=== PATIENT | female | born 1985 | race Two or more races ===

== ENCOUNTER 2021-07-25 15:39 | Emergency (ER) | payer MEDICAID, OTHER ==
[~2021-07-25] VITALS: Ht 147.3 cm; Wt 54.4 kg
[2021-07-25] MEDS ORDERED: LORazepam 2MG/ML-1ML VIAL IV ONE (16:00)
[2021-07-25] MEDS ORDERED: SODIUM CHLORIDE 0.9% 3,000 ML IV ONE (16:00)
[2021-07-25 16:20] VITALS: BP 148/70
[2021-07-25 16:43] LABS: Basophils # (auto) 0.1 10 ^3/uL (0-0.2); Basophils % (auto) 1.9 % (0.0-2.0); Eosinophils # (auto) 0 10 ^3/uL (0-0.8); Eosinophils % (auto) 0.6 % (0.0-7.0); Hematocrit 34.9 % (36.0-46.0); Hemoglobin 12.3 g/dL (12.2-16.2); Lymphocytes # (auto) 1.2 10 ^3/uL (0.4-5.4); Mean Corpuscular Hemoglobin 32.4 pg (28.0-32.0); Mean Corpuscular Hgb Conc. 35.2 g/dL (32.0-36.0); Mean Corpuscular Volume 92.1 fL (80.0-100.0); Monocytes # (auto) 0.6 10 ^3/uL (0-1.3); Monocytes % (auto) 15.7 % (0.0-12.0); Neutrophils % (auto) 50.8 % (37.0-80.0); Nucleated Red Blood Cells % 0.3 %; Red Cell Distribution Width 14.5 % (11.8-14.3)
[2021-07-25 16:56] LABS: INR 1.01 (0.9-1.15); Partial Thromboplastin Time 28.5 sec (23.6-33.0)
[2021-07-25 17:03] LABS: Alanine Aminotransferase 164 U/L (13-56); Albumin 3.9 g/dL (3.4-5.0); Anion Gap 15 (5-15); Aspartate Aminotransferase 193 U/L (15-37); BUN/Creatinine Ratio 5.6; Blood Alcohol < 3.0 mg/dL (0-5); Blood Urea Nitrogen 4 mg/dL (7-18); Calcium 8.3 mg/dL (8.5-10.1); Carbon Dioxide 24 mmol/L (21-32); Chloride 97 mmol/L (98-107); GFR African American 117 mL/min; GFR Non-African American 97 mL/min; Glucose 87 mg/dL (74-106); Lipase 286 U/L (73-393); Magnesium 2.1 mg/dL (1.6-2.6); Potassium 3.1 mmol/L (3.5-5.1); Sodium 136 mmol/L (136-145)
[2021-07-25 17:05] LABS: Alkaline Phosphatase 174 U/L (45-117); Bilirubin, Total 0.8 mg/dL (0.2-1.0); Total Protein 8.3 g/dL (6.4-8.2)
[2021-07-25] MEDS ORDERED: IOHEXOL 300 MG/ML 100ML BOTTLE IJ ONE (17:43)
== END 2021-07-25 18:29 | disposition left against medical advice (07) ==
LOC: EDBD 15:39 → ER 15:39
DX: F10.129 Alcohol abuse with intoxication, unspecified (principal); R94.5 Abnormal results of liver function studies; Z88.0 Allergy status to penicillin; Y90.0 Blood alcohol level of less than 20 mg/100 ml
CPT/HCPCS: 36415; 80053; 80320; 83690; 83735; 83880; 84484; 84702; 85025; 85610; 85730; 93005; 96361; 96374; 99284; J2060; J7030; Q9967

== ENCOUNTER 2022-06-21 19:32 | Emergency (ER) | payer MEDICAID ==
[~2022-06-21] VITALS: Ht 152.4 cm; Wt 60.0 kg
[2022-06-21 20:27] LABS: Hematocrit 42.3 % (36.0-46.0); Mean Corpuscular Hemoglobin 30.6 pg (28.0-32.0); Mean Corpuscular Hgb Conc. 33.1 g/dL (32.0-36.0); Mean Corpuscular Volume 92.4 fL (80.0-100.0); Red Blood Cells 4.58 10^6/uL (4.0-5.20); Red Cell Distribution Width 15.2 % (11.8-14.3); White Blood Cell 5.1 10^3/uL (4.4-10.8)
[2022-06-21 20:30] LABS: Basophils % (manual) 0 (0.0-2.0); Blast Cells 0; Metamyelocytes % 0; Myelocytes % 0; Promyelocytes % 0; Reactive Lymphocytes 0
[2022-06-21 20:40] LABS: Albumin 4.4 g/dL (3.4-5.0); Calcium 9.2 mg/dL (8.5-10.1)
[2022-06-21 20:43] LABS: Bilirubin, Total 0.2 mg/dL (0.2-1.0); Total Protein 8.2 g/dL (6.4-8.2)
[2022-06-21 20:50] LABS: Band Neutrophils % (manual) 1; Eosinophils % (manual) 3 (0-7); Lymphocytes % (manual) 44 (10.0-50.0); Monocytes % (manual) 17 (0-12)
[2022-06-21 21:11] VITALS: BP 128/92
[2022-06-21] MEDS ORDERED: LORazepam 2MG/ML-1ML VIAL IM ONE (21:15)
== END 2022-06-21 23:04 | disposition home or self-care (01) ==
LOC: ER 19:32 → EDBD 19:32 → ER 23:03
DX: R07.89 Other chest pain (principal); Z88.0 Allergy status to penicillin
CPT/HCPCS: 36415; 71046; 80053; 84443; 84484; 85007; 85027; 93005; 96372; 99285; J2060

== ENCOUNTER 2024-06-22 16:01 | Emergency (ER) | payer MEDICAID ==
[~2024-06-22] VITALS: Ht 147.3 cm; Wt 54.0 kg
[2024-06-22] MEDS: HYDROcodone-ACET 10/325MG TAB PO ONE (16:22)
[2024-06-22] MEDS: ONDANSETRON ODT 4 MG TAB PO ONE (16:23)
--- NOTE | 2024-06-22 16:32 | ED.PDOC ---
History of Present Illness HPI Comments 38F BIBA w/ prior MHx of Anxiety and the c/c of pelvic pain. EMS report on the pt having N/ and vaginal/umbilical area pain for the past 2 days. Pt states on being on her menstruation cycle currently and being "very heavy". EMS note the pt being G2 and a pain type of an 8/10. Denies chills, fever, /V/D, SOB, CP. No other associated symptoms, modifiers, recent injuries or sick contacts present at this time. Patient has a history of anxiety. Patient was tachycardic and tachypneic at arrival. Patient was mildly histrionic at time of evaluation. 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 Family History Family History: Reviewed,noncontributory to illness, Unknown Social History Smoker: Non-Smoker Alcohol: Unknown Drugs: Denies Drug Use Lives In: Home Constitutional: denies: chills, diaphoresis, fatigue, fever, malaise, sweats, weakness, others EENTM: denies: blurred vision, double vision, ear bleeding, ear discharge, ear drainage, ear pain, ear ringing, eye pain, eye redness, hearing loss, mouth pain, mouth swelling, nasal discharge, nose bleeding, nose congestion, nose pain, photophobia, tearing, throat pain, throat swelling, voice changes, others Respiratory: denies: cough, hemoptysis, orthopnea, SOB at rest, shortness of breath, SOB with excertion, stridor, wheezing, others Cardiovascular: denies: chest pain, dizzy spells, diaphoresis, Dyspnea on exertion, edema, irregular heart beat, left arm pain, lightheadedness, palpitations, PND, syncope, others Gastrointestinal: reports: abdominal pain, nausea; denies: abdomen distended, blood streaked bowels, constipated, diarrhea, dysphagia, difficulty swallowing, hematemesis, melena, poor appetite, poor fluid intake, rectal bleeding, rectal pain, vomiting, others Genitourinary: denies: abnormal vagina bleeding, burning, dyspareunia, dysuria, flank pain, frequency, hematuria, incontinence, pain, , vagina discharge, urgency, others Neurological: denies: dizziness, fainting, headache, left sided numbness, left sided weakness, numbness, paresthesia, pre-existing deficit, right sided numbness, right sided weakness, seizure, speech problems, tingling, tremors, weakness, others Musculoskeletal: denies: back pain, gout, joint pain, joint swelling, muscle pain, muscle stiffness, neck pain, others Integumetry: denies: bruises, change in color, change in hair/nails, dryness, laceration, lesions, lumps, rash, wounds, others Allergic/Immunocompromised: denies: Difficulty Healing, Frequent Infections, Hives, Itching, others Hematologic/Lymphatic: denies: anemia, blood clots, easy bleeding, easy bruising, swollen glands, others Endocrine: denies: excessive hunger, excessive sweating, excessive thirst, excessive urination, flushing, intolerance to cold, intolerance to heat, unexplained weight gain, unexplained weight loss, others Psychiatric: reports: anxiety; denies: bipolar disorder, depression, hopeless, panic disorder, schizophrenia, sleepless, suicidal, others All Other Systems: Reviewed and Negative Physical Exam General Appearance: Moderate Distress (Moderate distress due to abdominal pain concerns.), Normal HEENT: Normal ENT Inspection, Pharynx Normal, TMs Normal Neck: Full Range of Motion, Non-Tender, Normal, Normal Inspection Respiratory: Chest Non-Tender, Lungs Clear, No Accessory Muscle Use, No Respiratory Distress, Normal Breath Sounds Cardiovascular: No Edema, No JVD, No Murmur, No Gallop, Normal Peripheral Pulses, Regular Rate/Rhythm Breast Exam: Deferred Gastrointestinal: No Pulsatile Mass, Normal Bowel Sounds, Other (Diffuse bilateral lower abdominal tenderness to palpation. No pulsatile masses. No signs of trauma.) Genitalia: Deferred Pelvic: Deferred Rectal: Deferred Extremities: No calf tenderness, Normal capillary refill, Normal inspection, Normal range of motion, Non-tender, No pedal edema Musculoskeletal : Apperance: Normal Neurologic: Alert, No Motor Deficits, Normal Affect, Normal Mood, No Sensory Deficits Cerebellar Function: Normal Reflexes: Normal Skin: Dry, Normal Color, Warm Lymphatic: No Adenopathy Was a procedure done? Was a procedure done?: No Differential Dx Considerations may include: Sepsis, electrolyte abnormality, UTI, menses pain, cramps, ovarian cyst, uterine fibroids, anxiety X-Ray, Labs, Meds, VS Vital Signs Date Time Temp Pulse Resp B/P (MAP) Pulse Ox O2 Delivery O2 Flow Rate FiO2 06/22/24 18:37 84 17 96 Room Air* 0 21 06/22/24 17:59 73 06/22/24 17:57 98.8 87 20 143/82 (102) 98 98.8 06/22/24 16:33 100 20 96 Room Air 06/22/24 16:33 98.5 100 20 112/72 (85) 96 98.5 06/22/24 16:07 98.0 108 24 109/73 (85) 98 98.0 Lab Test 06/22/24 16:30 06/22/24 16:25 Range/Units White Blood Count 3.9 L 4.4-10.8 10^3/uL Red Blood Count 4.21 4.0-5.20 10^6/uL Hemoglobin 13.0 12.2-16.2 g/dL Hematocrit 38.6 36.0-46.0 % Mean Corpuscular Volume 91.7 80.0-100.0 fL Mean Corpuscular Hemoglobin 31.0 28.0-32.0 pg Mean Corpuscular Hemoglobin Concent 33.8 32.0-36.0 g/dL Red Cell Distribution Width 13.8 11.8-14.3 % Platelet Count 159 140-450 10^3/uL Mean Platelet Volume 7.6 6.9-10.8 fL Neutrophils (%) (Auto) 40.2 37.0-80.0 % Lymphocytes (%) (Auto) 48.3 10.0-50.0 % Monocytes (%) (Auto) 7.1 0.0-12.0 % Eosinophils (%) (Auto) 4.1 0.0-7.0 % Basophils (%) (Auto) 0.3 0.0-2.0 % Neutrophils # (Auto) 1.6 1.6-8.6 10 ^3/uL Lymphocytes # (Auto) 1.9 0.4-5.4 10 ^3/uL Monocytes # (Auto) 0.3 0-1.3 10 ^3/uL Eosinophils # (Auto) 0.2 0-0.8 10 ^3/uL Basophils # (Auto) 0 0-0.2 10 ^3/uL Nucleated Red Blood Cells 0.1 % Sodium Level 145 136-145 mmol/L Potassium Level 3.9 3.5-5.1 mmol/L Chloride Level 112 H 98-107 mmol/L Carbon Dioxide Level 19 L 20-31 mmol/L Anion Gap 14 5-15 Blood Urea Nitrogen 6 L 9-23 mg/dL Creatinine 0.73 0.550-1.02 mg/dL Glomerular Filtration Rate Calc 107 >90 mL/min BUN/Creatinine Ratio 8.2 L 10.0-20.0 Serum Glucose 83 74-106 mg/dL Calcium Level 9.1 8.7-10.4 mg/dL Total Bilirubin 0.4 0.2-1.0 mg/dL Aspartate Amino Transferase (AST) 29 13-40 U/L Alanine Aminotransferase (ALT) 23 7-40 U/L Alkaline Phosphatase 66 46-116 U/L Total Protein 7.5 5.7-8.2 g/dL Albumin 4.5 3.2-4.8 g/dL Urine Color Yellow Yellow Urine Clarity Clear Clear Urine pH 6.0 5.0-9.0 Urine Specific [place] 1.039 H 1.001-1.035 Urine Protein Trace H Negative Urine Ketones Trace Negative Urine Blood Negative Negative /uL Urine Nitrite Negative Negative Urine Bilirubin Negative Negative Urine Urobilinogen Normal Negative mg/dL Urine Leukocyte Esterase Negative Negative /uL Urine RBC 2 0 - 4 /hpf Urine Microscopic WBC 1 0-5 /HPF Urine Squamous Epithelial Cells Few <5 /hpf Urine Bacteria None seen None Seen /hpf Urine Mucus Few None Seen Urine Glucose Normal Normal mg/dL Urine Test Negative Negative Urine Opiates Screen Neg NEGATIVE Urine Fentanyl Screen Neg NEGATIVE Urine Barbiturates Screen Neg NEGATIVE Urine Phencyclidine Screen Neg NEGATIVE Urine Amphetamines Screen Neg NEGATIVE Urine Benzodiazepines Screen Neg NEGATIVE Urine Cocaine Screen Neg NEGATIVE Urine Cannabinoids Screen Neg NEGATIVE Current Medications Medications (Trade) Dose Ordered Sig/Fernando Route Start Time Stop Time Status Last Admin Acetaminophen/ Hydrocodone Bitart ([place] 10/325MG Tab) 1 tab ONCE ONCE PO 06/22/24 16:15 06/22/24 16:16 DC 06/22/24 16:22 Ondansetron HCl (Zofran Po) 4 mg ONCE ONCE PO 06/22/24 16:15 06/22/24 16:16 DC 06/22/24 16:23 Lorazepam (Ativan Inj) 1 mg ONCE ONCE IM 06/22/24 18:00 06/22/24 18:01 DC 06/22/24 18:40 X-Ray, Labs, Meds, VS Comment All studies performed the ED were evaluated by me personally. While patient was waiting for initial pain medication, patient started to complain of chest pain concerns. Patient was provided with the Ativan and EKG revealed a sinus rhythm with a rate of 73. ND interval of 127 and QT interval 414. Patient may have a right bundle-branch block. Serum laboratories were unremarkable for any systemic concerns. Urinalysis is unremarkable for any urinary tract issues. Ultrasound of the pelvis was unremarkable for any uterine fibroids or ovarian cyst. Patient appears to be having cramping pains and anxiety through patient responded well to Ativan and pain medication. Advised patient utilize pain medication as needed and follow up with touch up painter hand for discussions related to worsening cramps during menses. Time of 1ST Reevaluation: 19:05 Reevaluation 1ST: Improved Consultation: PCP, corrections cadet Patient Education/Counseling: Diagnosis, Treatment, Prognosis Family Education/Counseling: Diagnosis, Treatment, No Family Present Departure 1 Departure Time of Disposition: 19:06 Impression: Primary Impression: Menses painful Additional Impression: Anxiety Disposition: HOME / SELF CARE / HOMELESS Condition: Stable Additional Instructions: Advised patient utilize pain medication as needed for symptomatic relief. Patient should follow up with her touch up painter hand for discussions related to worsening menses pain concerns. e-Prescriptions Ondansetron Odt 4MG Tab (ZOFRAN PO) 4 Mg Tb 4 MG PO Q6HP PRN, #10 TAB ODT TAB-DISSOLVE IN MOUTH, THEN SWALLOW Prov: MARIELENA PFEIFFER PAC 06/22/24 Acetaminophen (Acetaminophen) 500 Mg Tab 500 MG PO Q4HP PRN, #30 TAB Prov: MARIELENA PFEIFFER PAC 06/22/24 Ibuprofen Micronized (Ibuprofen) 800 Mg Tab 800 MG PO Q8HP PRN, #20 TAB Prov: MARIELENA PFEIFFER PAC 06/22/24 Discharged With: Self, Friend Critical Care Note Critical Care Time?: No Stability Stability form required: No Heart Score Heart Score: Heart Score Response (Comments) Value History Slightly Suspicious 0 EKG Repolarization Disturb 1 Age <45 0 Risk Factors No known risk factors 0 Troponin Normal limit 0 Total 1 I personally scribed for MARIELENA PFEIFFER PAC ([email or web address]) on 06/22/24 at 16:32. Electronically submitted by Gaurang Ritchie ([email or web address]). MARIELENA PFEIFFER PAC June 22, 2024 16:32
[2024-06-22 16:41] LABS: Basophils # (auto) 0 10 ^3/uL (0-0.2); Basophils % (auto) 0.3 % (0.0-2.0); Eosinophils # (auto) 0.2 10 ^3/uL (0-0.8); Eosinophils % (auto) 4.1 % (0.0-7.0); Hematocrit 38.6 % (36.0-46.0); Lymphocytes # (auto) 1.9 10 ^3/uL (0.4-5.4); Lymphocytes % (auto) 48.3 % (10.0-50.0); Mean Corpuscular Hgb Conc. 33.8 g/dL (32.0-36.0); Mean Corpuscular Volume 91.7 fL (80.0-100.0); Monocytes # (auto) 0.3 10 ^3/uL (0-1.3); Monocytes % (auto) 7.1 % (0.0-12.0); Neutrophils # (auto) 1.6 10 ^3/uL (1.6-8.6); Neutrophils % (auto) 40.2 % (37.0-80.0); Nucleated Red Blood Cells % 0.1 %; Platelet Count (auto) 159 10^3/uL (140-450); Red Blood Cells 4.21 10^6/uL (4.0-5.20); Red Cell Distribution Width 13.8 % (11.8-14.3); White Blood Cell 3.9 10^3/uL (4.4-10.8)
[2024-06-22 16:55] LABS: Alanine Aminotransferase 23 U/L (7-40); Albumin 4.5 g/dL (3.2-4.8); Alkaline Phosphatase 66 U/L (46-116); Anion Gap 14 (5-15); Aspartate Aminotransferase 29 U/L (13-40); BUN/Creatinine Ratio 8.2 (10.0-20.0); Bilirubin, Total 0.4 mg/dL (0.2-1.0); Glucose 83 mg/dL (74-106); Potassium 3.9 mmol/L (3.5-5.1); Sodium 145 mmol/L (136-145); Total Protein 7.5 g/dL (5.7-8.2)
[2024-06-22 17:00] LABS: Blood Urea Nitrogen 6 mg/dL (9-23); Carbon Dioxide 19 mmol/L (20-31); Chloride 112 mmol/L (98-107)
[2024-06-22 17:01] LABS: Calcium 9.1 mg/dL (8.7-10.4)
[2024-06-22 17:56] LABS: Urine Bacteria None Seen /hpf (None Seen)
--- NOTE | 2024-06-22 18:00 | ECG ---
[facility] Test Date: 2024-06-22 Test Time: 17:59:24 Pat Name: LESIA GRANADOS Department: ER Room: Gender: F Car Sander: SWATI : 1985 Requested By: MARIELENA PFEIFFER Order Number: [id number] Reading MD: Viktor Crowell Measurements Intervals [place] Rate: 73 P: 60 MI: 127 QRS: 7 QRSD: 123 T: 41 QT: 414 QTc: 457 Interpretive Statements Sinus rhythm IVCD, consider atypical RBBB Electronically Signed On 06-26-2024 12:39:52 PDT by Viktor Crowell Please click the below link to view image of tracing.
[2024-06-22 18:14] LABS: Urine Blood Negative /uL (Negative); Urine Clarity Clear (Clear); Urine Color Yellow (Yellow); Urine Mucus FEW (None Seen); Urine Protein, UAD TRACE (Negative); Urine Specific Gravity 1.039 (1.001-1.035); Urine Squamous Epithelial Cell FEW /hpf (<5); Urine Urobilinogen Normal (Negative); Urine WBC 1 /HPF (0-5)
[2024-06-22 18:21] LABS: Opiate Scree,Urine Neg (NEGATIVE)
[2024-06-22 18:34] LABS: Amphetamine Screen, Urine Neg (NEGATIVE); Barbiturate Scree,Urine Neg (NEGATIVE); Benzodiazephine Screen, Urine Neg (NEGATIVE); Phencyclidine Screen, Urine Neg (NEGATIVE)
[2024-06-22 18:35] LABS: Cannabinoid Screen, Urine Neg (NEGATIVE); Cocaine Screen, Urine Neg (NEGATIVE)
[2024-06-22 18:37] VITALS: PULSE 84; RESP 17; O2SAT 96
[2024-06-22] MEDS: LORazepam 2MG/ML-1ML VIAL IM ONE (18:40)
--- NOTE | 2024-06-22 18:51 | DVH ---
EXAM: US PELVIC CLINICAL HISTORY: Diffuse bilateral pelvic pain TECHNIQUE: Transabdominal ultrasound of the pelvis with color Doppler flow as clinically indicated. COMPARISON: None Findings: Same-day quantitative beta-hCG is not available. Uterus measures 6.1 x 3.4 x 5.1 cm in size with relatively homogeneous echotexture and normal contour s. Endometrial thickness measures 0.3 cm with smooth contour. Cervix appears grossly unremarkable. Right ovary measures 2.8 x 1.8 x 2.5 cm. Left ovary measures 2.1 x 1.1 x 1.8 cm. Normal ovarian colo r Doppler flow to the bilateral ovaries. No free fluid in the cul-de-sac. Impression: 1. Uterus grossly unremarkable with endometrial thickness of 0.3 cm. 2. Bilateral ovaries within normal limits with normal color flow.
[2024-06-22] MEDS ORDERED: ZOFR4T PO (19:07)
[2024-06-22] MEDS ORDERED: IBUP-1455 PO (19:07)
[2024-06-22] MEDS ORDERED: ACET500T58 PO (19:07)
[2024-06-22 19:25] VITALS: BP 113/84; PULSE 83; RESP 14; TEMP 99; O2SAT 98
== END 2024-06-22 19:26 | disposition home or self-care (01) ==
LOC: EDBD 16:01 → ER 16:01
DX: N94.6 Dysmenorrhea, unspecified (principal); F41.9 Anxiety disorder, unspecified; Z88.0 Allergy status to penicillin
CPT/HCPCS: 36415; 76856; 80053; 80307; 81001; 81025; 85025; 93005; 96372; 99285; J2060; Q0162

== ENCOUNTER 2024-12-06 00:16 | Inpatient (IN) | payer MEDICAID ==
[~2024-12-06] VITALS: Ht 152.4 cm; Wt 60.3 kg
[~2024-12-06 00:16] MED LIST: ACET500T58 PO; IBUP-1455 PO; ZOFR4T PO
--- NOTE | 2024-12-06 01:10 | ED.PDOC ---
Psychiatric HPI Comments 39 year old female came to ER due to alcohol intoxication. Patient states she has been drinking alcohol heavily for the past 5 days. States her last drink was last night. She is feeling very anxious at this time. Denies any history of seizures REVIEW OF SYSTEMS: General: No fever, no chills, or fatigue HEENT: No sore throat, no earache, no congestion, no neck pain. Cardiac: No chest pain. No palpitations. Lungs: No shortness of breath, no cough. GI: No nausea, no vomiting, no diarrhea, no constipation, no abdominal pain : No dysuria, frequency, or urgency. No hematuria. Musculoskeletal: No joint pain , no joint swelling, no extremity edema. Skin: No rash, no itching. Neuro: No headache, no dizziness, no weakness, (+) anxiety EXAM: General: Awake, appears intoxicated Skin: Skin in warm, dry and intact. Appropriate color for ethnicity. HEENT: The head is normocephalic and atraumatic. Conjunctivae are clear without exudates or hemorrhage. Sclera is non-icteric. EOM are intact. No signs of nystagmus. Eyelids are normal in appearance without swelling or lesions. Oral mucosa is pink and moist Neck: The neck is supple with normal range of motion. No JVD. Cardiac: Heart rate and rhythm are normal. No murmurs, gallops, or rubs are auscultated. Respiratory: No signs of respiratory distress. Lung sounds are clear in all lobes bilaterally without rales, rhonchi, or wheezes. Abdominal: Abdomen is soft, non-tender without distention. Bowel sounds are present and normoactive in all four quadrants. Extremities: Upper and lower extremities are atraumatic in appearance without deformity or edema. 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 Was a procedure done?: No Psych Differential Dx Psych. Differential Dx: Anxiety OD Differential Dx: Alcohol Abuse, Anxiety, Depression X-Ray, Labs, Meds, VS Vital Signs Date Time Temp Pulse Resp B/P (MAP) Pulse Ox O2 Delivery O2 Flow Rate FiO2 12/06/24 11:00 97.6 110 17 118/71 (87) 97 97.6 12/06/24 08:12 98.0 104 16 118/71 (87) 96 98.0 12/06/24 08:12 104 16 96 Room Air* 0 21 12/06/24 00:18 97.0 125 22 115/87 98 97.0 Lab Test 12/06/24 10:34 12/06/24 05:55 12/06/24 05:17 12/06/24 04:00 Range/Units Magnesium Level 1.9 1.6-2.6 mg/dL Troponin I High Sensitivity < 3 L < 3 L </=34 ng/L Urine Color Colorless Yellow Urine Clarity Clear Clear Urine pH 6.0 5.0-9.0 Urine Specific [place] 1.007 1.001-1.035 Urine Protein 1+ H Negative Urine Ketones 1+ H Negative Urine Blood 1+ H Negative /uL Urine Nitrite Negative Negative Urine Bilirubin Negative Negative Urine Urobilinogen Normal Negative mg/dL Urine Leukocyte Esterase Negative Negative /uL Urine RBC 2 0 - 4 /hpf Urine Microscopic WBC 4 0-5 /HPF Urine Squamous Epithelial Cells Few <5 /hpf Urine Amorphous Crystals Few None Seen /hpf Urine Bacteria Few H None Seen /hpf Urine Hyaline Casts Few 0 - 2 /lpf Urine Glucose Normal Normal mg/dL Urine Opiates Screen Neg NEGATIVE Urine Fentanyl Screen Neg NEGATIVE Urine Barbiturates Screen Neg NEGATIVE Urine Phencyclidine Screen Neg NEGATIVE Urine Amphetamines Screen Neg NEGATIVE Urine Benzodiazepines Screen Pos NEGATIVE Urine Cocaine Screen Neg NEGATIVE Urine Cannabinoids Screen Neg NEGATIVE Test 12/06/24 02:50 12/06/24 02:05 Range/Units Sodium Level 144 136-145 mmol/L Potassium Level 4.1 3.5-5.1 mmol/L Chloride Level 105 98-107 mmol/L Carbon Dioxide Level 22 20-31 mmol/L Anion Gap 17 H 5-15 Blood Urea Nitrogen < 5 L 9-23 mg/dL Creatinine 0.63 0.550-1.02 mg/dL Glomerular Filtration Rate Calc 114 >90 mL/min BUN/Creatinine Ratio 7.9 L 10.0-20.0 Serum Glucose 91 74-106 mg/dL Calcium Level 8.8 8.7-10.4 mg/dL Magnesium Level 2.4 1.6-2.6 mg/dL Total Bilirubin 0.4 0.2-1.0 mg/dL Aspartate Amino Transferase (AST) 88 H 13-40 U/L Alanine Aminotransferase (ALT) 36 7-40 U/L Alkaline Phosphatase 75 46-116 U/L Troponin I High Sensitivity < 3 L </=34 ng/L Total Protein 8.3 H 5.7-8.2 g/dL Albumin 4.8 3.2-4.8 g/dL Plasma/Serum Blood Alcohol 502.1 *H <10 mg/dL White Blood Count 5.8 4.4-10.8 10^3/uL Red Blood Count 4.54 4.0-5.20 10^6/uL Hemoglobin 14.5 12.2-16.2 g/dL Hematocrit 42.5 36.0-46.0 % Mean Corpuscular Volume 93.8 80.0-100.0 fL Mean Corpuscular Hemoglobin 31.9 28.0-32.0 pg Mean Corpuscular Hemoglobin Concent 34.0 32.0-36.0 g/dL Red Cell Distribution Width 16.0 H 11.8-14.3 % Platelet Count 150 140-450 10^3/uL Mean Platelet Volume 7.8 6.9-10.8 fL Neutrophils (%) (Auto) 50.3 37.0-80.0 % Lymphocytes (%) (Auto) 43.6 10.0-50.0 % Monocytes (%) (Auto) 5.3 0.0-12.0 % Eosinophils (%) (Auto) 0.5 0.0-7.0 % Basophils (%) (Auto) 0.3 0.0-2.0 % Neutrophils # (Auto) 2.9 1.6-8.6 10 ^3/uL Lymphocytes # (Auto) 2.5 0.4-5.4 10 ^3/uL Monocytes # (Auto) 0.3 0-1.3 10 ^3/uL Eosinophils # (Auto) 0 0-0.8 10 ^3/uL Basophils # (Auto) 0 0-0.2 10 ^3/uL Nucleated Red Blood Cells 0.2 % Current Medications Medications (Trade) Dose Ordered Sig/Fernando Route Start Time Stop Time Status Last Admin Chlordiazepoxide HCl (Librium Capsule) 25 mg ONCE ONCE PO 12/06/24 08:30 12/06/24 08:32 DC 12/06/24 09:28 Ondansetron HCl (Zofran) 4 mg ONCE ONCE IV 12/06/24 08:30 12/06/24 08:33 DC 12/06/24 09:28 Thiamine HCl 100 mg DAILY PO 12/06/24 10:00 12/06/24 09:27 Folic Acid 1 mg DAILY PO 12/06/24 10:00 12/06/24 09:27 Multivitamins (Mvi Tab) 1 tab DAILY PO 12/06/24 10:00 12/06/24 09:26 Lorazepam (Ativan Inj) 1 mg ONCE ONCE IV 12/06/24 10:15 12/06/24 10:16 DC 12/06/24 10:18 Magnesium Sulfate/ Dextrose 100 ml @ 100 mls/hr ONCE ONCE IV 12/06/24 11:15 12/06/24 12:14 DC 12/06/24 13:08 Lorazepam (Ativan Inj) 1 mg Q6HP PRN IV 12/06/24 11:15 12/06/24 19:28 DC 12/06/24 16:37 Time of 1ST Reevaluation: 01:10 Reevaluation 1ST: Unchanged Patient Education/Counseling: Other Family Education/Counseling: No Family Present Change of Shift?: Yes Departure 1 Departure Time of Disposition: 06:00 Impression: Primary Impression: Alcohol intoxication Disposition: 30 STILL A PATIENT Condition: Stable Comments 39 year old female with alcohol intoxication and anxiety. Signed out to Dr. Rangel pending re-evaluation. Critical Care Note Critical Care Time?: No Stability Stability form required: No I personally scribed for MELANY MCCAIN MD ([email or web address]) on 12/06/24 at 01:10. Electronically submitted by Deniz Nichols ([email or web address]). MELANY MCCAIN MD Dec 06, 2024 01:10
[2024-12-06] MEDS: FOLIC ACID 1 MG, MAGNESIUM SULF SDV 50% 8 MEQ, MULTIPLE VITAMIN 10 ML, THIAMINE INJ 100... INJ STA (01:49)
[2024-12-06] MEDS: THIAMINE 100mg/ml INJ (200mg/2ml VIAL) ONE (02:31)
--- NOTE | 2024-12-06 03:09 | DVH ---
CHEST RADIOGRAPH Indication: Chest pain Technique: Single frontal view of the chest was obtained COMPARISON: XY CHEST TWO VIEWS ROUTINE on DOS: 06/21/22 FINDINGS: Lines and Tubes: None Lungs: Diminished lung volumes with concomitant crowding of the pulmonary vasculature. Mild right he midiaphragmatic elevation. No evidence of focal consolidation. Pleura: No effusion. No pneumothorax. Cardiomediastinal contours: Unremarkable Bones: Unremarkable IMPRESSION: 1. Diminished lung volumes with concomitant crowding of the pulmonary vasculature. 2. Mild right hemidiaphragmatic elevation. 3. No evidence of focal consolidation.
[2024-12-06 03:19] LABS: Alanine Aminotransferase 36 U/L (7-40); Alkaline Phosphatase 75 U/L (46-116); Anion Gap 17 (5-15); Bilirubin, Total 0.4 mg/dL (0.2-1.0); Calcium 8.8 mg/dL (8.7-10.4); Carbon Dioxide 22 mmol/L (20-31); Chloride 105 mmol/L (98-107); Glucose 91 mg/dL (74-106); Magnesium 2.4 mg/dL (1.6-2.6); Potassium 4.1 mmol/L (3.5-5.1); Sodium 144 mmol/L (136-145)
[2024-12-06 03:28] LABS: Albumin 4.8 g/dL (3.2-4.8); BUN/Creatinine Ratio 7.9 (10.0-20.0); Blood Urea Nitrogen < 5 mg/dL (9-23); Total Protein 8.3 g/dL (5.7-8.2)
--- NOTE | 2024-12-06 03:35 | DVH ---
EXAM: CT HEAD WITHOUT CONTRAST INDICATION: Altered mental status TECHNIQUE: CT of the head without intravenous contrast. Radiation Dose : 1. Head: CT Dose: CTDI volume is 59.36 mGy. Dose-length product is 1169.79 mGy*cm The dose indicators for CT are the volume Computed Tomography (CT) Dose Index (CTDIvol) and the Dose Length Product (DLP), and are measured in units of mGy and mGy-cm, respectively. These indicators are not patient dose, but values generated from the CT scanner acquisition factors. The report includes radiation exposure data for exposures received during this examination. COMPARISON: None FINDINGS: There is no evidence of acute intracranial hemorrhage, extra-axial collection, mass effect, midline s hift, herniation or hydrocephalus. Left frontotemporal craniotomy defect. The ventricles, sulci and cisterns are age appropriate. The rice-white differentiation is intact. Patchy periventricular and subcortical white matter hypoattenuation is nonspecific but may be related to small vessel ischemic disease. Bilateral maxillary and ethmoid mucosal sinus disease. The remaining visualized paranasal sinuses an d mastoid air cells are clear. The surrounding soft tissues and osseous structures are unremarkable. IMPRESSION: 1. No acute intracranial abnormality. Radiation optimization: All CT scans at this facility use at least one of these dose optimization nolvia hniques: automated exposure control mA and/or kV adjustment per patient size (includes targeted exam s where dose is matched to clinical indication) or iterative reconstruction.
[2024-12-06 06:03] LABS: Hematocrit 42.5 % (36.0-46.0); Hemoglobin 14.5 g/dL (12.2-16.2); Mean Corpuscular Hemoglobin 31.9 pg (28.0-32.0); Mean Corpuscular Volume 93.8 fL (80.0-100.0); Nucleated Red Blood Cells % 0.2 %
[2024-12-06 06:20] LABS: Urine Amorphous Crystal FEW /hpf (None Seen); Urine Protein, UAD 1+ (Negative)
[2024-12-06 06:23] LABS: Benzodiazephine Screen, Urine Pos (NEGATIVE)
[2024-12-06 06:25] LABS: Amphetamine Screen, Urine Neg (NEGATIVE); Barbiturate Scree,Urine Neg (NEGATIVE); Cocaine Screen, Urine Neg (NEGATIVE); Opiate Scree,Urine Neg (NEGATIVE); Phencyclidine Screen, Urine Neg (NEGATIVE)
[2024-12-06 06:26] LABS: Cannabinoid Screen, Urine Neg (NEGATIVE)
[2024-12-06 08:12] VITALS: PULSE 104; RESP 16; O2SAT 96
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
[2024-12-06] MEDS: MULTIPLE VITAMIN TAB PO ONE (09:26)
[2024-12-06] MEDS: MULTIPLE VITAMIN TAB PO SCH (09:26)
[2024-12-06] MEDS: THIAMINE HCL 100 MG TAB PO SCH (09:27)
[2024-12-06] MEDS: THIAMINE HCL 100 MG TAB PO ONE (09:27)
[2024-12-06] MEDS: FOLIC ACID 1 MG TAB PO SCH (09:27)
[2024-12-06] MEDS: FOLIC ACID 1 MG TAB PO ONE (09:27)
[2024-12-06] MEDS: ONDANSETRON HCL 4 MG/2 ML VIAL IV ONE (09:28)
[2024-12-06] MEDS: LORazepam 2MG/ML-1ML VIAL IV ONE (10:18)
[2024-12-06] MEDS: ALPRAZolam 0.5 MG TAB PO ONE (13:04)
[2024-12-06] MEDS: ONDANSETRON HCL 4 MG/2 ML VIAL IV PRN ×2 (13:05→19:46)
[2024-12-06] MEDS: MAGNESIUM SULFATE 1GM/100ML 100 ML IV ONE (13:08)
[2024-12-06 13:47] VITALS: PULSE 100; RESP 20; O2SAT 95
[2024-12-06] MEDS: LORazepam 2MG/ML-1ML VIAL IV PRN ×2 (16:37→19:49)
[2024-12-06 20:45] VITALS: BP 127/76; PULSE 110; RESP 20; TEMP 97.9; O2SAT 0
[2024-12-06 21:00] VITALS: BP 127/76; PULSE 110; RESP 20; TEMP 97.9; O2SAT 100
[2024-12-07] VITALS (7 sets, daily range): BP systolic 122–134; BP diastolic 81–96; PULSE 79–110; RESP 16–20; TEMP 97.4–98.4; O2SAT 97–100
[2024-12-07] MEDS: LORazepam 2MG/ML-1ML VIAL IV PRN (02:57)
--- NOTE | 2024-12-07 13:32 | DVHPN2 ---
Subjective The patient seen and examined at bedside. No complains, feel better, want to eat solid food. Reviewed: Care Plan, H&P, Labs, Medications, Previous Orders, Radiology Changes from previous H/P or p: No Changes Objective Vitals Vital Signs Date Time Temp Pulse Resp B/P (MAP) Pulse Ox O2 Delivery O2 Flow Rate FiO2 12/07/24 12:55 97.7 79 16 127/81 (96) 100 97.7 12/06/24 20:45 Room Air* 0 21 Intake/Output Intake and Output 12/07/24 07:00 Intake Total 200 ml Balance 200 ml Intake Oral 100 ml IV Total 100 ml # Voids 2 General Appearance: Alert, No acute distress HEENT: Atraumatic, PERRLA, EOMI, Mucous membr. moist/pink Neck: Supple Lungs: Clear to auscultation, Normal air movement Cardiovascular: Regular rate, Normal S1, Normal S2, No murmurs, Gallops, Rubs Abdomen: Normal bowel sounds, Soft, No tenderness Neuro: Cranial nerves 3-12 NL Psych/Mental Status: Mental status NL Medications Current Medications Medications Dose Ordered Sig/Fernando Route Start Time Stop Time Status Last Admin Dose Admin Thiamine HCl 100 mg DAILY PO 12/06/24 10:00 12/07/24 08:38 100 MG Folic Acid 1 mg DAILY PO 12/06/24 10:00 12/07/24 08:38 1 MG Multivitamins 1 tab DAILY PO 12/06/24 10:00 12/07/24 08:38 1 TAB Ondansetron HCl 4 mg Q4HPRN PRN IV 12/06/24 19:15 12/07/24 06:27 4 MG Lorazepam 1 mg Q4HR PRN IV 12/07/24 02:45 12/07/24 08:44 1 MG Laboratory Results Laboratory Tests 12/06/24 02:05 12/06/24 02:50 Urinalysis Test 12/06/24 05:17 Urine Color Colorless (Yellow) Urine Clarity Clear (Clear) Urine pH 6.0 (5.0-9.0) Urine Specific [place] 1.007 (1.001-1.035) Urine Protein 1+ (Negative) H Urine Ketones 1+ (Negative) H Urine Blood 1+ /uL (Negative) H Urine Nitrite Negative (Negative) Urine Bilirubin Negative (Negative) Urine Urobilinogen Normal mg/dL (Negative) Urine Leukocyte Esterase Negative /uL (Negative) Urine RBC 2 /hpf (0 - 4) Urine Microscopic WBC 4 /HPF (0-5) Urine Squamous Epithelial Cells Few /hpf (<5) Urine Amorphous Crystals Few /hpf (None Seen) Urine Bacteria Few /hpf (None Seen) H Urine Hyaline Casts Few /lpf (0 - 2) Urine Glucose Normal mg/dL (Normal) Labs and/or images reviewed: Labs reviewed by me Assessment/Plan Assessment/Plan ETOH intoxication Transaminitis likely due to alcohol abuse Positive benzo History of craniotomy in July of 2023 History of anxiety Plan Continue current management. Continue with VitB1, MVI, Folic acid. Continue Librium, Ativan, Advice diet with soft diet. Plan discussed with: Patient My Orders Orders - AMBER COX MD Procedure Category Date Status Time Regular Diet DIET 12/07/24 Transmitted Lunch Date of Service: Dec 07, 2024 Billing Provider: AMBER COX MD Common Visit Codes: [id number] INP/OBS CARE(HIGH) AMBER COX MD Dec 07, 2024 13:32
[2024-12-07] MEDS: FAMOTIDINE (10MG/ML) 2ML VL IV ONE (21:30)
[2024-12-08] VITALS (8 sets, daily range): BP systolic 113–138; BP diastolic 76–99; PULSE 73–100; RESP 16–20; TEMP 97.8–98.4; O2SAT 97–100
[2024-12-08] MEDS: FAMOTIDINE (10MG/ML) 2ML VL IV SCH (08:39)
[2024-12-08] MEDS: SODIUM CHLORIDE 0.9% 1,000 ML IV SCH (09:35)
[2024-12-08 10:26] LABS: Chloride 104 mmol/L (98-107); Sodium 137 mmol/L (136-145)
[2024-12-08 10:27] LABS: Anion Gap 14 (5-15); Calcium 8.9 mg/dL (8.7-10.4)
[2024-12-08 10:28] LABS: Carbon Dioxide 19 mmol/L (20-31); Potassium 3.5 mmol/L (3.5-5.1)
[2024-12-08 10:32] LABS: BUN/Creatinine Ratio 10.6 (10.0-20.0); Glucose 78 mg/dL (74-106)
[2024-12-08 10:48] LABS: Blood Urea Nitrogen 7 mg/dL (9-23)
[2024-12-08 11:11] LABS: Hematocrit 35.1 % (36.0-46.0); Hemoglobin 11.9 g/dL (12.2-16.2); Mean Corpuscular Hemoglobin 31.5 pg (28.0-32.0); Mean Corpuscular Volume 92.9 fL (80.0-100.0); Nucleated Red Blood Cells % 0.1 %
--- NOTE | 2024-12-08 13:37 | DVHPN2 ---
Subjective The patient seen and examined at bedside. State that she still vomit. Seem to frustrate that she is not improved. Reviewed: Care Plan, H&P, Labs, Medications, Previous Orders, Radiology Changes from previous H/P or p: No Changes Objective Vitals Vital Signs Date Time Temp Pulse Resp B/P (MAP) Pulse Ox O2 Delivery O2 Flow Rate FiO2 12/08/24 09:00 97.8 80 18 114/78 (90) 97 97.8 12/08/24 08:00 Room Air* 0 21 Intake/Output Intake and Output 12/08/24 07:00 Intake Total 920 ml Balance 920 ml Intake Oral 920 ml # Voids 4 # Bowel Movements 1 General Appearance: Alert, No acute distress HEENT: Atraumatic, PERRLA, EOMI, Mucous membr. moist/pink Neck: Supple Lungs: Clear to auscultation, Normal air movement Cardiovascular: Regular rate, Normal S1, Normal S2, No murmurs, Gallops, Rubs Abdomen: Normal bowel sounds, Soft, No tenderness Neuro: Cranial nerves 3-12 NL Psych/Mental Status: Mental status NL Medications Current Medications Medications Dose Ordered Sig/Fernando Route Start Time Stop Time Status Last Admin Dose Admin Thiamine HCl 100 mg DAILY PO 12/06/24 10:00 12/08/24 08:43 100 MG Folic Acid 1 mg DAILY PO 12/06/24 10:00 12/08/24 08:43 1 MG Multivitamins 1 tab DAILY PO 12/06/24 10:00 12/08/24 08:43 1 TAB Ondansetron HCl 4 mg Q4HPRN PRN IV 12/06/24 19:15 12/08/24 08:46 4 MG Lorazepam 1 mg Q4HR PRN IV 12/07/24 02:45 12/08/24 08:41 1 MG Famotidine 20 mg DAILY IV 12/08/24 10:00 12/08/24 08:39 20 MG Sodium Chloride 1,000 ml @ 75 mls/hr [id number] IV 12/08/24 09:30 12/08/24 09:35 75 MLS/HR Laboratory Results Laboratory Tests 12/08/24 09:43 12/08/24 10:55 Chemistry Test 12/08/24 09:43 Calcium Level 8.9 mg/dL (8.7-10.4) Urinalysis Test 12/06/24 05:17 Urine Color Colorless (Yellow) Urine Clarity Clear (Clear) Urine pH 6.0 (5.0-9.0) Urine Specific [place] 1.007 (1.001-1.035) Urine Protein 1+ (Negative) H Urine Ketones 1+ (Negative) H Urine Blood 1+ /uL (Negative) H Urine Nitrite Negative (Negative) Urine Bilirubin Negative (Negative) Urine Urobilinogen Normal mg/dL (Negative) Urine Leukocyte Esterase Negative /uL (Negative) Urine RBC 2 /hpf (0 - 4) Urine Microscopic WBC 4 /HPF (0-5) Urine Squamous Epithelial Cells Few /hpf (<5) Urine Amorphous Crystals Few /hpf (None Seen) Urine Bacteria Few /hpf (None Seen) H Urine Hyaline Casts Few /lpf (0 - 2) Urine Glucose Normal mg/dL (Normal) Labs and/or images reviewed: Labs reviewed by me Assessment/Plan Assessment/Plan ETOH intoxication Transaminitis likely due to alcohol abuse Positive benzodiazepine History of craniotomy in July of 2023 History of anxiety Plan Continue current management. Continue with VitB1, MVI, Folic acid. Continue Librium, Ativan, Advice diet with soft diet. Replace electrolyte as needed Plan discussed with: Patient, Other (Rn) My Orders Orders - AMBER COX MD Procedure Category Date Status Time Sodium Chloride 0.9% PHA 12/08/24 In Process 09:30 Mechanical Soft Diet DIET 12/08/24 Transmitted Lunch Date of Service: Dec 08, 2024 Billing Provider: AMBER COX MD Common Visit Codes: [id number] INP/OBS CARE(HIGH) AMBER COX MD Dec 08, 2024 13:37
--- NOTE | 2024-12-08 23:55 | ECG ---
[facility] Test Date: 2024-12-08 Test Time: 23:53:46 Pat Name: LESIA GRANADOS Department: Room: 0216T A Gender: F Finishing Operator: yousuf : 1985 Requested By: SILVINO CHAN Order Number: [id number] Reading MD: Viktor Crowell Measurements Intervals [place] Rate: 109 P: 47 SD: 132 QRS: -13 QRSD: 71 T: 49 QT: 345 QTc: 465 Interpretive Statements Sinus tachycardia Low voltage, precordial leads Electronically Signed On 12-09-2024 15:30:19 PDT by Viktor Crowell Please click the below link to view image of tracing.
[2024-12-09] VITALS (9 sets, daily range): BP systolic 104–131; BP diastolic 74–99; PULSE 62–107; RESP 16–18; TEMP 97.4–98.3; O2SAT 96–100
[2024-12-09] MEDS: MORPHINE SULFATE INJ 2 MG/ml SYRG IV ONE (00:09)
[2024-12-09 03:00] LABS: Hematocrit 37.8 % (36.0-46.0); Hemoglobin 12.7 g/dL (12.2-16.2); Mean Corpuscular Hemoglobin 31.2 pg (28.0-32.0); Mean Corpuscular Volume 93.3 fL (80.0-100.0); Nucleated Red Blood Cells % 0.2 %
[2024-12-09 03:26] LABS: Potassium 3.8 mmol/L (3.5-5.1); Sodium 139 mmol/L (136-145)
[2024-12-09 03:27] LABS: Anion Gap 11 (5-15)
[2024-12-09 03:28] LABS: Calcium 9.2 mg/dL (8.7-10.4)
[2024-12-09 03:33] LABS: BUN/Creatinine Ratio 9.1 (10.0-20.0)
[2024-12-09 03:54] LABS: Blood Urea Nitrogen 7 mg/dL (9-23); Carbon Dioxide 19 mmol/L (20-31); Chloride 109 mmol/L (98-107); Glucose 131 mg/dL (74-106)
--- NOTE | 2024-12-09 10:29 | DVHPN2 ---
Subjective The patient seen and examined at bedside. State that she still vomit. Seem to frustrate that she is not improved. Crying and said no one care for her. Admitted that she is depressed and anxious and use alcohol to numb the pain of anxiety and depression. Denies thought of harming herself or other. Reviewed: Care Plan, H&P, Labs, Medications, Previous Orders, Radiology Changes from previous H/P or p: No Changes Objective Vitals Vital Signs Date Time Temp Pulse Resp B/P (MAP) Pulse Ox O2 Delivery O2 Flow Rate FiO2 12/09/24 09:00 97.4 67 18 119/94 (102) 96 97.4 12/08/24 20:00 Room Air* 0 21 Intake/Output Intake and Output 12/09/24 07:00 Intake Total 2725 ml Balance 2725 ml Intake Oral 1350 ml IV Total 1375 ml # Voids 7 General Appearance: Alert, No acute distress HEENT: Atraumatic, PERRLA, EOMI, Mucous membr. moist/pink Neck: Supple Lungs: Clear to auscultation, Normal air movement Cardiovascular: Regular rate, Normal S1, Normal S2, No murmurs, Gallops, Rubs Abdomen: Normal bowel sounds, Soft, No tenderness Neuro: Cranial nerves 3-12 NL Psych/Mental Status: Mental status NL Medications Current Medications Medications Dose Ordered Sig/Fernando Route Start Time Stop Time Status Last Admin Dose Admin Thiamine HCl 100 mg DAILY PO 12/06/24 10:00 12/08/24 08:43 100 MG Folic Acid 1 mg DAILY PO 12/06/24 10:00 12/08/24 08:43 1 MG Multivitamins 1 tab DAILY PO 12/06/24 10:00 12/08/24 08:43 1 TAB Ondansetron HCl 4 mg Q4HPRN PRN IV 12/06/24 19:15 12/09/24 06:08 4 MG Lorazepam 1 mg Q4HR PRN IV 12/07/24 02:45 12/09/24 06:08 1 MG Famotidine 20 mg DAILY IV 12/08/24 10:00 12/08/24 08:39 20 MG Sodium Chloride 1,000 ml @ 75 mls/hr [id number] IV 12/08/24 09:30 12/09/24 06:30 75 MLS/HR Laboratory Results Laboratory Tests 12/09/24 02:32 Chemistry Test 12/09/24 02:32 Calcium Level 9.2 mg/dL (8.7-10.4) Urinalysis Test 12/06/24 05:17 Urine Color Colorless (Yellow) Urine Clarity Clear (Clear) Urine pH 6.0 (5.0-9.0) Urine Specific [place] 1.007 (1.001-1.035) Urine Protein 1+ (Negative) H Urine Ketones 1+ (Negative) H Urine Blood 1+ /uL (Negative) H Urine Nitrite Negative (Negative) Urine Bilirubin Negative (Negative) Urine Urobilinogen Normal mg/dL (Negative) Urine Leukocyte Esterase Negative /uL (Negative) Urine RBC 2 /hpf (0 - 4) Urine Microscopic WBC 4 /HPF (0-5) Urine Squamous Epithelial Cells Few /hpf (<5) Urine Amorphous Crystals Few /hpf (None Seen) Urine Bacteria Few /hpf (None Seen) H Urine Hyaline Casts Few /lpf (0 - 2) Urine Glucose Normal mg/dL (Normal) Labs and/or images reviewed: Labs reviewed by me Assessment/Plan Assessment/Plan ETOH intoxication Transaminitis likely due to alcohol abuse Positive benzodiazepine History of craniotomy in July of 2023 History of anxiety Intractable nausea/vomiting Depression Plan Continue current management. Continue with VitB1, MVI, Folic acid. Continue Librium, Ativan, Advice diet with soft diet. Replace electrolyte as needed GI consult Will start patient on Zoloft Plan discussed with: Patient My Orders Orders - AMBER COX MD Procedure Category Date Status Time Mechanical Soft Diet DIET 12/08/24 Transmitted Lunch Complete Blood Count LAB 12/10/24 Verified 05:00 Complete Blood Count LAB 12/11/24 Verified 05:00 Complete Blood Count LAB 12/12/24 Verified 05:00 Complete Blood Count LAB 12/13/24 Verified 05:00 Basic Metabolic Panel LAB 12/10/24 Verified 05:00 Basic Metabolic Panel LAB 12/11/24 Verified 05:00 Basic Metabolic Panel LAB 12/12/24 Verified 05:00 Basic Metabolic Panel LAB 12/13/24 Verified 05:00 Date of Service: Dec 09, 2024 Billing Provider: AMBER COX MD Common Visit Codes: [id number] INP/OBS CARE(HIGH) AMBER COX MD Dec 09, 2024 10:28
[2024-12-09] MEDS: SERTRALINE HCL 50 MG TAB PO ONE (11:56)
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
[2024-12-09] MEDS ORDERED: TEMAZEPAM 15 MG CAP PO ONE (23:30)
[2024-12-10] VITALS (9 sets, daily range): BP systolic 115–137; BP diastolic 80–97; PULSE 58–77; RESP 12–18; TEMP 97.2–97.7; O2SAT 95–100
[2024-12-10 05:46] LABS: Hematocrit 34.3 % (36.0-46.0); Hemoglobin 11.5 g/dL (12.2-16.2); Mean Corpuscular Hemoglobin 31.2 pg (28.0-32.0); Mean Corpuscular Volume 93.3 fL (80.0-100.0); Nucleated Red Blood Cells % 0.2 %
[2024-12-10 06:01] LABS: INR 0.97 (0.9-1.15); Partial Thromboplastin Time 26.4 SEC (24.5-34.5); Prothrombin Time 10.3 sec (9.3-11.8)
[2024-12-10 06:08] LABS: Anion Gap 11 (5-15); Carbon Dioxide 23 mmol/L (20-31); Sodium 141 mmol/L (136-145)
[2024-12-10 06:10] LABS: Calcium 9.1 mg/dL (8.7-10.4)
[2024-12-10 06:11] LABS: Chloride 107 mmol/L (98-107); Potassium 3.4 mmol/L (3.5-5.1)
[2024-12-10 06:14] LABS: BUN/Creatinine Ratio 9.5 (10.0-20.0); Glucose 106 mg/dL (74-106)
[2024-12-10 06:18] LABS: Blood Urea Nitrogen 6 mg/dL (9-23)
[2024-12-10] MEDS: SERTRALINE HCL 50 MG TAB PO SCH (10:00)
--- NOTE | 2024-12-10 10:10 | DVHPN2 ---
Subjective The patient seen and examined at bedside. State that she still vomit. Seem to frustrate that she is not improved. Crying and said no one care for her. Admitted that she is depressed and anxious and use alcohol to numb the pain of anxiety and depression. Denies thought of harming herself or other. Reviewed: Care Plan, H&P, Labs, Medications, Previous Orders, Radiology Objective Vitals Vital Signs Date Time Temp Pulse Resp B/P (MAP) Pulse Ox O2 Delivery O2 Flow Rate FiO2 12/10/24 05:00 97.6 75 18 124/87 (99) 98 97.6 12/09/24 20:10 Room Air* 0 21 Intake/Output Intake and Output 12/10/24 07:00 Intake Total 800 ml Balance 800 ml Intake Oral 800 ml # Voids 4 # Bowel Movements 1 General Appearance: Alert, No acute distress HEENT: Atraumatic, PERRLA, EOMI, Mucous membr. moist/pink Neck: Supple Lungs: Clear to auscultation, Normal air movement Cardiovascular: Regular rate, Normal S1, Normal S2, No murmurs, Gallops, Rubs Abdomen: Normal bowel sounds, Soft, No tenderness Neuro: Cranial nerves 3-12 NL Psych/Mental Status: Mental status NL Medications Current Medications Medications Dose Ordered Sig/Fernando Route Start Time Stop Time Status Last Admin Dose Admin Thiamine HCl 100 mg DAILY PO 12/06/24 10:00 12/09/24 10:23 100 MG Folic Acid 1 mg DAILY PO 12/06/24 10:00 12/09/24 10:23 1 MG Multivitamins 1 tab DAILY PO 12/06/24 10:00 12/09/24 10:23 1 TAB Ondansetron HCl 4 mg Q4HPRN PRN IV 12/06/24 19:15 12/10/24 05:26 4 MG Lorazepam 1 mg Q4HR PRN IV 12/07/24 02:45 12/10/24 05:27 1 MG Famotidine 20 mg DAILY IV 12/08/24 10:00 12/09/24 10:24 20 MG Sodium Chloride 1,000 ml @ 75 mls/hr [id number] IV 12/08/24 09:30 12/09/24 06:30 75 MLS/HR Chlordiazepoxide HCl 25 mg Q8HPRN PRN PO 12/09/24 11:00 12/09/24 23:25 25 MG Sertraline HCl 25 mg DAILY PO 12/10/24 10:00 Laboratory Results Laboratory Tests 12/10/24 04:47 Chemistry Test 12/10/24 04:47 Calcium Level 9.1 mg/dL (8.7-10.4) Coagulation Test 12/10/24 04:47 Prothrombin Time 10.3 sec (9.3-11.8) Prothrombin Time INR 0.97 (0.9-1.15) Activated Partial Thromboplast Time 26.4 SEC (24.5-34.5) Urinalysis Test 12/06/24 05:17 Urine Color Colorless (Yellow) Urine Clarity Clear (Clear) Urine pH 6.0 (5.0-9.0) Urine Specific [place] 1.007 (1.001-1.035) Urine Protein 1+ (Negative) H Urine Ketones 1+ (Negative) H Urine Blood 1+ /uL (Negative) H Urine Nitrite Negative (Negative) Urine Bilirubin Negative (Negative) Urine Urobilinogen Normal mg/dL (Negative) Urine Leukocyte Esterase Negative /uL (Negative) Urine RBC 2 /hpf (0 - 4) Urine Microscopic WBC 4 /HPF (0-5) Urine Squamous Epithelial Cells Few /hpf (<5) Urine Amorphous Crystals Few /hpf (None Seen) Urine Bacteria Few /hpf (None Seen) H Urine Hyaline Casts Few /lpf (0 - 2) Urine Glucose Normal mg/dL (Normal) Assessment/Plan Assessment/Plan ETOH intoxication Transaminitis likely due to alcohol abuse Positive benzodiazepine History of craniotomy in July of 2023 History of anxiety Intractable nausea/vomiting Depression Plan Continue current management. Continue with VitB1, MVI, Folic acid. Continue Librium, Ativan, Advice diet with soft diet. Replace electrolyte as needed GI consult Will start patient on Zoloft My Orders Orders - AMBER COX MD Procedure Category Date Status Time Chlordiazepoxide Hcl PHA 12/09/24 In Process Capsule (Librium Ca 11:00 Sertraline Hcl PHA 12/10/24 In Process (Zoloft) 10:00 * [facility] [employer] [employer] CONS 12/09/24 Transmitted 12:34 ABMER COX MD Dec 10, 2024 10:09
[2024-12-10] MEDS: D5W/SOD CHL 0.45% 1,000 ML IV SCH (11:15)
[2024-12-10] MEDS ORDERED: LIDOCAINE VISCOUS 2% 15ML UD ONE (13:49)
[2024-12-10] MEDS ORDERED: fentaNYL CITRATE 100 MCG/2 ML VL ONE (13:59)
[2024-12-10] MEDS ORDERED: PROPOFOL 10 MG/ML 20 ML IV ONE (13:59)
[2024-12-10] MEDS ORDERED: MIDAZOLAM HCL 2MG/2ML 2ml VIAL (1mg/ml) ONE (13:59)
[2024-12-10] MEDS ORDERED: BENZOCAINE (DENTAL) 20 % SPRAY 60ML MT ONE (14:13)
--- NOTE | 2024-12-10 14:50 | DVHOP2 ---
Operative Report DATE OF OPERATION: 12/10/24 PROCEDURE: Upper Endoscopy with biopsy PREOPERATIVE INDICATION: The patient is a 39 -year-old female undergoing endoscopy for atypical chest discomfort and left upper quadrant pain POSTOPERATIVE DIAGNOSES: 1. She had a 1 cm sliding-type hiatal hernia with slightly irregular squamocolumnar junction minimal grade a erosive esophagitis 2. She had moderate gastropathy of the proximal stomach and mild antral gastritis otherwise normal examination up to the 2nd and 3rd part of the duodenum PROCEDURE PERFORMED BY: Sav Hoskins SCOPE: Olympus videoendoscope. ASA CLASS: 3. PREOPERATIVE MEDICATIONS: Mac Dr. Katarzyna gay PROCEDURE IN DETAIL: After obtaining an informed consent, the patient was placed on left lateral decubitus position. The patient was then sedated with the above medications. A bite block was placed between her teeth. The endoscope was then passed through the oropharynx, into the esophagus, and through the stomach and pylorus up to the second and third part of the duodenum. The endoscope was then withdrawn. The 2nd and 3rd part of the duodenal were normal and there was good bile drainage. The duodenal bulb and postbulbar area showed minimal duodenitis The pre-pyloric area antrum showed mild antral gastritis. On retroflexion she had moderate gastropathy in the proximal stomach likely related to alcohol use and possibly from retching Gastric biopsies were obtained. There was no fresh or old blood in the upper GI tract. The endoscope was then withdrawn into distal esophagus Patient had a 0.5-1 cm sliding-type hiatal hernia with slightly irregular squamocolumnar junction minimal grade a erosive esophagitis. GE junction biopsies were obtained. The remaining distal and proximal esophagus and oropharynx were unremarkable. The patient tolerated the procedure well without difficulty. COMPLICATIONS : None SPECIMENS: Duodenal biopsies Gastric biopsies GE junction biopsies DISPOSITION: Transfer back to the floor Stable PLAN: 1. Await for biopsy result 2. Will place pt on Protonix 40 mg bid IV 3. Carafate 1 g p.o. 4 times a day 4. DC aspirin NSAIDs smoking alcohol 5. Outpatient follow up with GI Services as needed 6. Resume GI soft diet advance as tolerated SAV HOSKINS MD Dec 10, 2024 14:50
[2024-12-10] MEDS ORDERED: ZOFR4T PO (17:38)
[2024-12-10] MEDS ORDERED: PANT40TA2 PO (17:38)
[2024-12-10] MEDS ORDERED: SUCR1SUS26 PO (17:38)
[2024-12-10] MEDS ORDERED: SERT25TA84 PO (17:38)
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
== END 2024-12-10 20:30 | disposition home or self-care (01) | DRG 816 ==
LOC: ER 00:16 → OVERFLOW 12:06 → TELE-CENTR 23:34
PROVIDERS: ADMIT Internal Medicine; ATTEND Internal Medicine
PROC: 0DB68ZX Excision of Stomach, Via Natural or Artificial Opening Endoscopic, Diagnostic (ICD-10-PCS; 2024-12-10)
PROC: 0DB48ZX Excision of Esophagogastric Junction, Via Natural or Artificial Opening Endoscopic, Diagnostic (ICD-10-PCS; 2024-12-10)
PROC: 0DB98ZX Excision of Duodenum, Via Natural or Artificial Opening Endoscopic, Diagnostic (ICD-10-PCS; principal; 2024-12-10 14:24)
DX: T51.0X1A Toxic effect of ethanol, accidental (unintentional), initial encounter (principal); K22.10 Ulcer of esophagus without bleeding; K29.80 Duodenitis without bleeding; K29.70 Gastritis, unspecified, without bleeding; F10.139 Alcohol abuse with withdrawal, unspecified; F10.129 Alcohol abuse with intoxication, unspecified; F32.A Depression, unspecified; F41.9 Anxiety disorder, unspecified; R74.01 Elevation of levels of liver transaminase levels; K31.9 Disease of stomach and duodenum, unspecified; K44.9 Diaphragmatic hernia without obstruction or gangrene; Y90.9 Presence of alcohol in blood, level not specified; Z88.0 Allergy status to penicillin; Z83.3 Family history of diabetes mellitus; Z82.49 Family history of ischemic heart disease and other diseases of the circulatory system; Z91.014 Allergy to mammalian meats
CPT/HCPCS: 36415; 43239; 70450; 71045; 80048; 80053; 80307; 80320; 81001; 83735; 84484; 84702; 85025; 85610; 85730; 86850; 86900; 86901; 93005; 96374; 96375; G0378; J1100; J2250; J2405; J2704; J3490